=== PATIENT | male | born 1955 | race Hispanic/Latino ===

== ENCOUNTER → 2017-08-29 | Outpatient (CLI) | payer OTHER | END | disposition home or self-care (01) | LOC: RAH 07:29 | PROVIDERS: ATTEND Family Medicine | DX: S83.231A Complex tear of medial meniscus, current injury, right knee, initial encounter (principal); M17.11 Unilateral primary osteoarthritis, right knee; M94.261 Chondromalacia, right knee; M25.461 Effusion, right knee; X58.XXXA Exposure to other specified factors, initial encounter; Y93.89 Activity, other specified; Y92.89 Other specified places as the place of occurrence of the external cause; Y99.8 Other external cause status | CPT/HCPCS: 73721 ==

== ENCOUNTER → 2018-02-18 | Outpatient (CLI) | payer OTHER | END | disposition home or self-care (01) | LOC: OIH 10:41 | PROVIDERS: ATTEND Family Medicine | DX: I10 Essential (primary) hypertension (principal) | CPT/HCPCS: 71046 ==

== ENCOUNTER → 2018-06-13 | Outpatient (CLI) | payer OTHER | END | disposition home or self-care (01) | LOC: OIH 09:09 | PROVIDERS: ATTEND Family Medicine | DX: M47.896 Other spondylosis, lumbar region (principal); M47.898 Other spondylosis, sacral and sacrococcygeal region; M43.27 Fusion of spine, lumbosacral region | CPT/HCPCS: 72100; 72220 ==

== ENCOUNTER → 2018-10-24 | Outpatient (CLI) | payer OTHER | END | disposition home or self-care (01) | LOC: OIH 13:46 | PROVIDERS: ATTEND Family Medicine | DX: M19.072 Primary osteoarthritis, left ankle and foot (principal); M77.32 Calcaneal spur, left foot | CPT/HCPCS: 73630 ==

== ENCOUNTER → 2018-10-31 | Outpatient (CLI) | payer OTHER | END | disposition home or self-care (01) | LOC: RAH 12:44 | PROVIDERS: ATTEND Family Medicine | DX: L03.031 Cellulitis of right toe (principal); E11.51 Type 2 diabetes mellitus with diabetic peripheral angiopathy without gangrene | CPT/HCPCS: 93925 ==

== ENCOUNTER → 2019-02-11 | Outpatient (CLI) | payer OTHER | END | disposition home or self-care (01) | LOC: OIH 14:25 | PROVIDERS: ATTEND Family Medicine | DX: M25.511 Pain in right shoulder (principal); W11.XXXA Fall on and from ladder, initial encounter | CPT/HCPCS: 73030 ==

== ENCOUNTER → 2019-12-17 | Outpatient (CLI) | payer OTHER | END | disposition home or self-care (01) | LOC: RAH 08:46 | PROVIDERS: ATTEND Family Medicine | DX: R22.9 Localized swelling, mass and lump, unspecified (principal) | CPT/HCPCS: 76536 ==

== ENCOUNTER → 2020-02-05 | Outpatient (CLI) | payer OTHER | END | disposition home or self-care (01) | LOC: OIH 08:09 | PROVIDERS: ATTEND Family Medicine | DX: M47.817 Spondylosis without myelopathy or radiculopathy, lumbosacral region (principal) | CPT/HCPCS: 72100 ==

== ENCOUNTER → 2021-01-30 | Outpatient (CLI) | payer OTHER | END | disposition home or self-care (01) | LOC: RAH 11:14 | PROVIDERS: ATTEND Family Medicine | DX: R19.03 Right lower quadrant abdominal swelling, mass and lump (principal); R10.2 Pelvic and perineal pain | CPT/HCPCS: 76882 ==

== ENCOUNTER 2021-02-09 20:27 | Emergency (ER) | payer OTHER, MEDICARE ==
[~2021-02-09] VITALS: Ht 172.7 cm; Wt 113.4 kg
[2021-02-09] VITALS (8 sets, daily range): BP systolic 108–122; BP diastolic 46–64
[2021-02-09] MEDS ORDERED: HYDROCODONE/ACETAMINOPHEN 5/325 MG TAB PO ONE (20:45)
[2021-02-09] MEDS ORDERED: OCTYL 2-CYANOACRYLATE 1 EACH TP ONE (23:07)
[2021-02-09] MEDS ORDERED: NOREPINEPHRINE 4MG/NS 250ML 250 ML IV ONE (23:08)
[2021-02-09] MEDS ORDERED: CEPH500B PO (23:21)
== END 2021-02-09 23:38 | disposition home or self-care (01) ==
LOC: EDH 22:35
DX: S81.012A Laceration without foreign body, left knee, initial encounter (principal); I10 Essential (primary) hypertension; E10.9 Type 1 diabetes mellitus without complications; W27.8XXA Contact with other nonpowered hand tool, initial encounter; Y93.89 Activity, other specified; Y92.89 Other specified places as the place of occurrence of the external cause; Y99.8 Other external cause status
CPT/HCPCS: 12002; 73562; 99285; J3490

== ENCOUNTER 2023-02-20 00:17 | Emergency (ER) | payer OTHER, MEDICARE ==
[~2023-02-20 00:17] MED LIST: CEPH500B PO
[2023-02-20] MEDS ORDERED: TETANUS/DIPHTHERIA TOXOID [ADULT] 0.5 ML VIAL IM ONE (01:00)
[2023-02-20] MEDS ORDERED: CEPH500B PO (01:25)
[2023-02-20] MEDS ORDERED: CYCL10TA16 PO (01:25)
[2023-02-20 01:44] VITALS: BP 110/53
== END 2023-02-20 01:45 | disposition home or self-care (01) ==
LOC: EDH 00:17
DX: S00.01XA Abrasion of scalp, initial encounter (principal); I10 Essential (primary) hypertension; E11.9 Type 2 diabetes mellitus without complications; Y08.89XA Assault by other specified means, initial encounter; Y93.89 Activity, other specified; Y92.89 Other specified places as the place of occurrence of the external cause; Y99.8 Other external cause status
CPT/HCPCS: 70450; 71045; 72125; 90471; 90714

== ENCOUNTER 2023-02-23 10:57 | Observation (INO) | payer OTHER, MEDICARE ==
[~2023-02-23] VITALS: Ht 180.3 cm; Wt 86.9 kg
[~2023-02-23 10:57] MED LIST changes: +CYCL10TA16 PO
[2023-02-23 11:22] LABS: EOSINOPHILS % (AUTO) 2.2 % (0.0-8.0); HEMATOCRIT 41.2 % (42-54); LYMPHOCYTES % (AUTO) 25.4 % (21.0-51.0); MEAN CORPUSCULAR HEMOGLOBIN 28.1 pg (27.0-33.0); MEAN CORPUSCULAR HGB CONC 32.3 g/dL (32.0-36.0); MEAN CORPUSCULAR VOLUME 87.1 fL (79-99); MONOCYTES % (AUTO) 9.1 % (3.0-13.0); PLATELET COUNT (AUTO) 176 K/uL (130-400); RED BLOOD CELL COUNT(AUTO) 4.73 MIL/uL (4.50-6.20); RED CELL DISTRIBUTION WIDTH 13.6 % (11.0-15.5)
[2023-02-23 11:38] LABS: ALBUMIN 3.6 g/dL (3.5-5.0); TOTAL PROTEIN, SERUM 7.3 g/dL (6.0-8.3)
[2023-02-23 11:49] LABS: B-TYPE NATRIURETIC PEPTIDE 18 pg/mL (0-100)
[2023-02-23] MEDS ORDERED: MECLIZINE HCL 25 MG TABLET PO ONE (12:00)
[2023-02-23] MEDS ORDERED: 0.9%NACL 1000ML 1,000 ML IV ONE (12:00)
[2023-02-23] MEDS ORDERED: KETOROLAC 15MG/ML VIAL (15MG/ML) IV ONE (12:00)
[2023-02-23 12:28] LABS: APPEARANCE,URINE CLEAR (CLEAR); BILIRUBIN,URINE NEGATIVE (NEGATIVE); COLOR,URINE LIGHT-YELLOW (YELLOW); GLUCOSE, URINE (UA) >=1000 mg/dL (NEGATIVE); KETONES,URINE 10 mg/dL (NEGATIVE); LEUKOCYTE ESTERASE ,URINE NEGATIVE Leu/uL (NEGATIVE); NITRATE,URINE NEGATIVE (NEGATIVE); OCCULT BLOOD,URINE SMALL (NEGATIVE); PH,URINE 5.5 (5.0-8.0); PROTEIN,URINE 30 mg/dL (NEGATIVE); UROBILINOGEN,URINE 0.2 mg/dL (0.2-1.0)
[2023-02-23 12:31] LABS: SQUAMOUS EPITHELIAL CELL,UR RARE /HPF (0-2); WBC,URINE 0-1 /HPF (0-1)
[2023-02-23] MEDS ORDERED: IOHEXOL 350 MG/ML 100ML INFUS..BTL IV ONE (13:35)
[2023-02-23] MEDS ORDERED: DEXAMETHASONE SOD PHOSPHATE 4 MG/ML 1ML VIAL IVP ONE (16:00)
[2023-02-23] MEDS ORDERED: ACETAMINOPHEN 325 MG TAB PO PRN (16:00)
[2023-02-23] MEDS ORDERED: TRAMADOL HCL 50 MG TABLET PO PRN (16:00)
[2023-02-23] MEDS ORDERED: LACTATED RINGERS 1000ML 1,000 ML IV SCH (16:00)
[2023-02-23] MEDS ORDERED: CEFTRIAXONE 1G VIAL IVPB SCH (16:00)
[2023-02-23] MEDS ORDERED: CLONIDINE HCL 0.1 MG TABLET PO PRN (16:00)
[2023-02-23] MEDS ORDERED: ONDANSETRON 4MG INJ IVP PRN (16:00)
[2023-02-23] MEDS ORDERED: LACTULOSE 20 GM/30 ML UDCUP PO PRN (16:00)
[2023-02-23] MEDS ORDERED: ACETAMINOPHEN 650 MG SUPPOSITORY RC PRN (16:00)
[2023-02-23] MEDS ORDERED: HYDRALAZINE 20MG/ML VIAL IV PRN (16:00)
[2023-02-23] MEDS: DOXYCYCLINE 100MG+NS 250ML IV SCH (16:13)
[2023-02-23 19:00] VITALS: BP 130/58
[2023-02-23 23:36] VITALS: BP 106/50
[2023-02-24 04:00] VITALS: BP 105/51
[2023-02-24] MEDS: DOXYCYCLINE 100MG+NS 250ML IV SCH (04:26)
[2023-02-24 04:51] LABS: BASOPHILS % (AUTO) 0.2 % (0.0-5.0); HEMATOCRIT 37.6 % (42-54); LYMPHOCYTES % (AUTO) 12.6 % (21.0-51.0); MEAN CORPUSCULAR HEMOGLOBIN 28.5 pg (27.0-33.0); MEAN CORPUSCULAR HGB CONC 33.2 g/dL (32.0-36.0); MEAN CORPUSCULAR VOLUME 85.8 fL (79-99); MONOCYTES % (AUTO) 3.5 % (3.0-13.0); NEUTROPHILS % (AUTO) 83.4 % (40.0-77.0); PLATELET COUNT (AUTO) 178 K/uL (130-400); RED BLOOD CELL COUNT(AUTO) 4.38 MIL/uL (4.50-6.20); RED CELL DISTRIBUTION WIDTH 13.3 % (11.0-15.5)
[2023-02-24] MEDS ORDERED: ROSU40TA21 PO (04:56)
[2023-02-24] MEDS ORDERED: PREG100C55 PO (04:56)
[2023-02-24] MEDS ORDERED: EMPA25TA PO (04:56)
[2023-02-24] MEDS ORDERED: SITA1TAB6 PO (04:56)
[2023-02-24] MEDS ORDERED: RAMI1.2528 PO (04:56)
[2023-02-24 04:59] LABS: CREATININE 1.1 mg/dL (0.5-1.5); MAGNESIUM 1.3 mg/dL (1.80-2.40); POTASSIUM 4.1 mmol/L (3.5-5.1)
[2023-02-24 08:19] VITALS: BP 103/48
[2023-02-24] MEDS ORDERED: ENOXAPARIN SODIUM 40 MG/0.4 ML SYRINGE SQ SCH (09:00)
[2023-02-24] MEDS ORDERED: PANTOPRAZOLE 40 MG TAB DR PO SCH (09:00)
[2023-02-24 12:00] VITALS: BP 114/50
== END 2023-02-24 17:30 | disposition home or self-care (01) ==
LOC: EDH 10:57 → EDHIP 15:46 → 3DH 19:06
PROVIDERS: ADMIT Internal Medicine; ATTEND Internal Medicine
DX: R42 Dizziness and giddiness (principal); S00.01XA Abrasion of scalp, initial encounter; I10 Essential (primary) hypertension; E11.9 Type 2 diabetes mellitus without complications; R26.9 Unspecified abnormalities of gait and mobility; R51.9 Headache, unspecified; Z79.899 Other long term (current) drug therapy; Z98.890 Other specified postprocedural states; W19.XXXA Unspecified fall, initial encounter; Y92.89 Other specified places as the place of occurrence of the external cause; Y93.89 Activity, other specified; Y99.8 Other external cause status
CPT/HCPCS: 96361; 96365; 96366 ×2; 96375; 99285; 82550; 84484; 80053; 83880; 85025 ×2; 82948 ×2; 83605; 81001; 36415 ×2; 71045; 70450; 70496; 70498; 93306; 93880; 93005; 96372; 83735; 80048; 97161; 97116; J1100; G0378 ×24; J7120; J7030; J0696; J3490 ×2; J1885; Q9967; J1650

== ENCOUNTER 2024-12-02 20:28 | Emergency (ER) | payer MEDICARE ==
[~2024-12-02] VITALS: Ht 180.3 cm; Wt 86.2 kg
[~2024-12-02 20:28] MED LIST changes: -CEPH500B PO; -CYCL10TA16 PO; +EMPA25TA PO; +PREG100C56 PO; +RAMI1.2529 PO; +ROSU40TA88 PO; +SITA1TAB6 PO
--- NOTE | 2024-12-02 21:56 | HMCIMG ---
CT NECK SOFT TISS W/O CONTRAST HISTORY: Probable swallowing COMPARISON: None TECHNIQUE: Multiple sequential axial images of the soft tissue neck were obtained. Patient was not given contrast through intravenous route. FINDINGS: Visualized portion of brain parenchyma within the posterior fossa is within normal limits. Subtle isointense material is seen in the right piriform sinus region may be related to food material. There are degenerative changes with cervical spine spondylosis. Parapharyngeal fat planes are preserved bilaterally. Parotid glands and submandibular glands are grossly within normal limits. There are normal size cervical lymph nodes. The airway is patent. Visualized portion of the lung apices are unremarkable. IMPRESSION: 1. Subtle isointense material is seen in the right piriform sinus region may be related to food material. CT was performed with one or more following dose reduction techniques: automated exposure control, adjustment of the mA and kv according to patient's size, or use of a iterative reconstruction technique.
[2024-12-02] MEDS: LIDOCAINE HCL 2% VISCOUS 15 ML UDCUP PO ONE (22:19)
[2024-12-02] MEDS: DICYCLOMINE HCL 10 MG/5 ML ML PO ONE (22:19)
[2024-12-02] MEDS: MAG/ALUM/SIMETH 30 ML UDCUP PO ONE (22:19)
--- NOTE | 2024-12-02 22:38 | ERN ---
ED Note History of Present Illness Stated Complaint: C/O FEELING A PIECE OF GARLIC IN THROAT Chief Complaint: Swallowed Foreign Body Time Seen by MD: 20:47 Time Seen by Midlevel: 20:47 Dictation: Patient is a 69-year-old male who presents to the emergency department with sensation of food stuck in throat after eating a piece of garlic onset 1 hour ago. Patient denies any shortness of breath, cough, nausea or vomiting. Allergies: Coded Allergies: No Known Drug Allergies (Unverified Allergy, Unknown, 02/09/21) Home Meds Reported Medications Sitagliptin Phos/Metformin HCl (Janumet 50-1,000 mg Tablet) 1 Each Tablet, 1 EACH PO BIDPC, TAB 02/24/23 Ramipril (Ramipril) 1.25 Mg Capsule, 1.25 MG PO DAILY, CAP 02/24/23 Rosuvastatin Calcium (Rosuvastatin Calcium) 40 Mg Tablet, 40 MG PO DAILY, TAB 02/24/23 Empagliflozin (Jardiance) 25 Mg Tablet, 25 MG PO DAILY, TAB 02/24/23 Pregabalin (Pregabalin) 100 Mg Capsule, 100 MG PO BID, CAP 02/24/23 Past Medical History Past Medical History: Diabetes-Type II Surgical History: None Surgical History Other: BACK Social History: ETOH, Lives with family RN Note Reviewed/Agreed w/PFSH: Yes Review of System Dictation Constitutional: Negative for fever,chills, and weight loss Eyes: Negative for injury, pain,redness, and discharge ENT: Negative for injury,pain or swelling positive for sore throat Cardiovascular: Negative for chest pain, palpitations, and edema Respiratory: Negative for shortness of breath, cough, and wheezing, Abdomen/GI: Negative for abdominal pain, nausea, vomiting, diarrhea, and constipation Back: Negative for injury and pain : Negative for injury, bleeding and discharge MS/Extremity: Negative for injury and deformity Skin: Negative for rash, and discoloration Neuro: Negative for headache, weakness, numbness, tingling, and seizure Psych: Negative for suicide ideation, homicidal ideation, and hallucinations Initial Vital Sign VS Vital Signs Date Time Temp Pulse Resp B/P (MAP) Pulse Ox O2 Delivery O2 Flow Rate FiO2 12/02/24 20:30 97.2 58 20 125/65 97 Room Air 12/02/24 20:38 0 21 Physical Exam Dictation Vital Signs reviewed General Appearance: Alert, oriented x 3, no acute distress, well developed, nourished. Head and Face: non-traumatic. Eyes: PERRL, pink conjunctivas, eyelid no trauma, anterior chamber with arcus senilis. Ears: Pinnas intact and no signs of trauma or erythema ear canals clear and no discharge TM no erythema Nose: No discharge, no bleeding. Oropharynx: Mouth normal, tongue pink. pharynx clear,no erythema, tonsils no exudates, no abscesses noted, mucous membrane moist Neck: Supple, non-tender, no thyromegaly, no masses, no JVD, no bruits Breast:Deferred Chest:No tenderness, no crepitus, no paradoxical movement, no retractions Lungs:Clear, well-ventilated, symmetric, no rales, no wheezing, no rhonchi, no stridor, good breath sounds bilaterally Heart: Regular rate, regular rhythm, no murmur, no gallops Vascular: no peripheral edema, Abdomen: Soft, positive bowel sounds, nondistended, no guarding, nontender, no rebound, no masses no hepatomegaly, no splenomegaly, no Stewart's sign, no hernias. Rectal: Deferred Genital: Deferred Neurological: Normal speech, motor function intact, sensory function intact Musculoskeletal: Neck nontender, full range of motion, back nontender, full range of motion, Extremities: nontender, full range of motion Skin: Color pink, dry, no turgor, no rash, no lacerations, no abrasions, no contusions. Lymphatic: Deferred Results (Laboratory/Radiology) Laboratory/Radiology REASON: rule out foreign body ORDERING PHYSICIAN: AURA SHORT ZONING TECHNICIAN PROCEDURE: [id number] WO - CT NECK SOFT TISS W/O CONTRAST CT NECK SOFT TISS W/O CONTRAST HISTORY: Probable swallowing COMPARISON: None TECHNIQUE: Multiple sequential axial images of the soft tissue neck were obtained. Patient was not given contrast through intravenous route. FINDINGS: Visualized portion of brain parenchyma within the posterior fossa is within normal limits. Subtle isointense material is seen in the right piriform sinus region may be related to food material. There are degenerative changes with cervical spine spondylosis. Parapharyngeal fat planes are preserved bilaterally. Parotid glands and submandibular glands are grossly within normal limits. There are normal size cervical lymph nodes. The airway is patent. Visualized portion of the lung apices are unremarkable. IMPRESSION: 1. Subtle isointense material is seen in the right piriform sinus region may be related to food material. CT was performed with one or more following dose reduction techniques: automated exposure control, adjustment of the mA and kv according to patient's size, or use of a iterative reconstruction technique. Labs Reviewed?: Yes ED Course ED Course Orders Procedure Category Date Status Time Ct Neck Soft Tiss W/O CT 12/02/24 Resulted Contrast 21:00 Lidocaine Hcl 2% PHA 12/02/24 Complete Viscous (Lidocaine Hcl 22:00 Dicyclomine Hcl PHA 12/02/24 Complete (Bentyl 10mg/5ml 22:00 Mag/Alum/Simeth 30ml PHA 12/02/24 Complete (Maalox Plus 30ml) 22:00 Current Medications Medications (Trade) Dose Ordered Sig/Candace Route PRN Reason Start Time Stop Time Status Last Admin Dose Admin Al Hydroxide/Mg Hydroxide (MAALox PLUS 30ML) 30 ml ONCE ONCE PO 12/02/24 22:00 12/02/24 22:01 DC 12/02/24 22:19 Dicyclomine HCl (Bentyl 10mg/5ml Syrup) 10 mg ONCE ONCE PO 12/02/24 22:00 12/02/24 22:01 DC 12/02/24 22:19 Lidocaine HCl (Lidocaine HCl 2% Viscous) 10 ml ONCE ONCE PO 12/02/24 22:00 12/02/24 22:01 DC 12/02/24 22:19 Vital Signs Date Time Temp Pulse Resp B/P (MAP) Pulse Ox O2 Delivery O2 Flow Rate FiO2 12/02/24 20:38 97.2 58 20 125/65 97 Room Air* 0 21 12/02/24 20:30 97.2 58 20 125/65 97 Room Air Medical Decision Making MDM Patient is a 69-year-old male who presents to the emergency department with sensation of food stuck in throat after eating a piece of garlic onset 1 hour ago. Patient denies any shortness of breath, cough, nausea or vomiting. CT showed subtle is so intense material seen in the right piriform sinus region that could related to food material. Patient instructed to drink plenty of fluids at home and to a gurgle. Patient in no acute distress, no cough, no drooling. We will be discharged to follow up with PCP. Differential diagnosis: Foreign body in throat, dysphagia, gastritis Need for hospitalization: Patient does not meet criteria for hospitalization. There are no social concerns with this patient. DX & DISP Disposition: Discharge Departure Impression: Primary Impression: Throat irritation Additional Impression: Sensation of foreign body in throat Condition: Stable Additional Instructions: Follow up with your primary doctor in 1-2 days. If symptoms worsen please return to ER. Continue to drink plenty of fluids at home. If symptoms do not improve might be eating referral to a watch and clock repairer. FOLLOW-UP WITH PRIMARY CARE PROVIDER IN 1 TO 2 DAYS. TAKE MEDICATIONS DIRECTED HERE IN THE EMERGENCY ROOM. OKAY TO CONTINUE HOME MEDICATIONS UNLESS OTHERWISE DISCUSSED DURING YOUR VISIT IN THE EMERGENCY ROOM TODAY. RETURN TO YOUR NEAREST EMERGENCY ROOM IF SYMPTOMS WORSEN OR IF THERE IS NO IMPROVEMENT. CALL 911 IF YOU NEED IMMEDIATE ASSISTANCE. TAKE TYLENOL OR MOTRIN [id number] NEEDED AND IF NO CONTRAINDICATIONS ARE PRESENT. INCREASE ORAL HYDRATION. A WOUND CULTURE OR URINE CULTURE WAS ORDERED HERE IN THE EMERGENCY ROOM DEPARTMENT PLEASE FOLLOW-UP WITH PRIMARY CARE PROVIDER AND ADVISE THEM TO GET REPEAT PORTS FROM OUR FACILITY. IF YOU HAD ANY YENNY WRAP/SPLINTS THAT WERE APPLIED HERE, PLEASE DO NOT REMOVE THEM UNTIL YOU SEE YOUR PRIMARY CARE OR SPECIALTY. Referrals: RAMON CROOKS MD (PCP) Time of Disposition: 22:35 I have reviewed the case, and I agree with, Diagnosis and Plan AURA SHORT Dec 02, 2024 22:38
[2024-12-02 22:45] VITALS: BP 128/62; PULSE 65; RESP 20; TEMP 97.2; O2SAT 97
== END 2024-12-02 22:46 | disposition home or self-care (01) ==
LOC: EDH 20:28
DX: R09.A2 Foreign body sensation, throat (principal); E11.9 Type 2 diabetes mellitus without complications; Z79.84 Long term (current) use of oral hypoglycemic drugs; Z79.899 Other long term (current) drug therapy
CPT/HCPCS: 70490; 99284

== ENCOUNTER 2025-01-12 12:17 | Emergency (ER) | payer MEDICARE ==
[~2025-01-12] VITALS: Ht 180.3 cm; Wt 84.4 kg
--- NOTE | 2025-01-12 12:57 | EKG ---
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
[2025-01-12 13:20] LABS: BASOPHILS # (AUTO) 0.06 K/uL (0.00-0.20); EOSINOPHILS # (AUTO) 0.14 K/uL (0.00-0.70); EOSINOPHILS % (AUTO) 2.4 % (0.0-8.0); IMMATURE GRANULOCYTE ABSOLUTE 0.01 K/uL (0-1); LYMPHOCYTES # (AUTO) 1.4 K/uL (1.0-4.8); LYMPHOCYTES % (AUTO) 24.5 % (21.0-51.0); MEAN CORPUSCULAR HEMOGLOBIN 29.2 pg (27.0-33.0); MEAN CORPUSCULAR HGB CONC 32.7 g/dL (32.0-36.0); MEAN CORPUSCULAR VOLUME 89.3 fL (79-99); MONOCYTES # (AUTO) 0.4 K/uL (0.1-1.0); MONOCYTES % (AUTO) 7.5 % (3.0-13.0); NEUTROPHILS # (AUTO) 3.7 K/uL (1.8-7.7); NEUTROPHILS % (AUTO) 64.4 % (40.0-77.0); PLATELET COUNT (AUTO) 190 K/uL (130-400); RED BLOOD CELL COUNT(AUTO) 4.59 MIL/uL (4.50-6.20); RED CELL DISTRIBUTION WIDTH 12.8 % (11.0-15.5); WHITE BLOOD COUNT (AUTO) 5.7 K/uL (4.8-10.8)
[2025-01-12 13:32] LABS: CREATININE 1.2 mg/dL (0.5-1.3); MAGNESIUM 1.9 mg/dL (1.80-2.40); POTASSIUM 4.6 mmol/L (3.5-5.1)
[2025-01-12 13:33] LABS: INR 1.03 (0.85-1.15); PROTHROMBIN TIME 10.9 SEC (9.6-11.6)
[2025-01-12 13:34] LABS: PARTIAL THROMBOPLASTIN TIME 28.8 SEC (26.3-35.5)
[2025-01-12 13:45] LABS: B-TYPE NATRIURETIC PEPTIDE 37 pg/mL (0-100)
--- NOTE | 2025-01-12 13:50 | HMCIMG ---
Exam Type: CHEST 1VW Clinical Information: cp Comparison: None Findings: The lungs are clear of infiltrates. The heart is normal in size. The bony and soft tissue structures of the chest are unremarkable. Impression: Clear lungs.
[2025-01-12 15:53] LABS: AMPHET/METH SCREEN,URINE NEGATIVE (NEGATIVE); BARBITURATE SCREEN, URINE NEGATIVE (NEGATIVE); BENZODIAZEPINES SCREEN,URINE NEGATIVE (NEGATIVE); CANNABINOID SCREEN,URINE NEGATIVE (NEGATIVE); COCAINE SCREEN,URINE NEGATIVE (NEGATIVE); OPIATE SCREEN,URINE NEGATIVE (NEGATIVE); PHENCYCLIDINE SCREEN,URINE NEGATIVE (NEGATIVE)
--- NOTE | 2025-01-12 16:12 | ERN ---
General Chief Complaint: Chest Pain Stated Complaint: CHEST PAIN Time Seen by MD: 12:35 Time Seen by Midlevel: 12:35 History of Present Illness Allergies: Coded Allergies: No Known Drug Allergies (Unverified Allergy, Unknown, 02/09/21) Home Meds Reported Medications Sitagliptin Phos/Metformin HCl (Janumet 50-1,000 mg Tablet) 1 Each Tablet, 1 EACH PO BIDPC, TAB 02/24/23 Ramipril (Ramipril) 1.25 Mg Capsule, 1.25 MG PO DAILY, CAP 02/24/23 Rosuvastatin Calcium (Rosuvastatin Calcium) 40 Mg Tablet, 40 MG PO DAILY, TAB 02/24/23 Empagliflozin (Jardiance) 25 Mg Tablet, 25 MG PO DAILY, TAB 02/24/23 Pregabalin (Pregabalin) 100 Mg Capsule, 100 MG PO BID, CAP 02/24/23 Past Medical History Past Medical History: Diabetes-Type II, Hypertension Past Surgical History: None Surgical History Other: BACK Social History Social History: ETOH, Lives with family ROS Dictation CONSTITUTIONAL: Negative except for HPI HEAD/FACE: Negative except for HPI EENT: Negative except for HPI RESPIRATORY: Negative except for HPI GASTROINTESTINAL/ABDOMINAL: Negative except for HPI GENITOURINARY: Negative except for HPI MUSCULOSKELETAL: Negative except for HPI INTEGUMENTARY: Negative except for HPI NEUROLOGICAL/PSYCH: Negative except for HPI HEMATOLOGIC/LYMPHATIC: Negative except for HPI All Systems Negative, Except as noted above. 13 point review of systems assessed and all negative except for above. Physical Exam Physical Exam Dictation Vital Signs reviewed General Appearance: Alert, oriented x 3, no acute distress, well developed, nourished. Head and Face: non-traumatic. Eyes: PERRL, pink conjunctivas, eyelid no trauma, anterior chamber with arcus senilis. Ears: Pinnas intact and no signs of trauma or erythema ear canals clear and no discharge TM no erythema Nose: No discharge, no bleeding. Oropharynx: Mouth normal, tongue pink, pharynx clear,no erythema, tonsils no exudates, no abscesses noted, mucous membrane moist Neck: Supple, non-tender, no thyromegaly, no masses, no JVD, no bruits Breast:Deferred Chest:No tenderness, no crepitus, no paradoxical movement, no retractions Lungs:Clear, well-ventilated, symmetric, no rales, no wheezing, no rhonchi, no stridor, good breath sounds bilaterally Heart: Regular rate, regular rhythm, no murmur, no gallops Vascular: no peripheral edema, Abdomen: Soft, positive bowel sounds, nondistended, no guarding, nontender, no rebound, no masses no hepatomegaly, no splenomegaly, no Stewart's sign, no hernias. Rectal: Deferred Genital: Deferred Neurological: Normal speech, motor function intact, sensory function intact Musculoskeletal: Neck nontender, full range of motion, back nontender, full range of motion, Extremities: nontender, full range of motion Skin: Color pink, dry, no turgor, no rash, no lacerations, no abrasions, no contusions. Lymphatic: Deferred Results Laboratory and Microbiology Lab and Micro Result Laboratory Tests Test 01/12/25 13:03 01/12/25 15:37 White Blood Count 5.7 K/uL (4.8-10.8) Red Blood Count 4.59 MIL/uL (4.50-6.20) Hemoglobin 13.4 g/dL (14.0-18.0) L Hematocrit 41.0 % (42-54) L Mean Corpuscular Volume 89.3 fL (79-99) Mean Corpuscular Hemoglobin 29.2 pg (27.0-33.0) Mean Corpuscular Hemoglobin Concent 32.7 g/dL (32.0-36.0) Red Cell Distribution Width 12.8 % (11.0-15.5) Platelet Count 190 K/uL (130-400) Mean Platelet Volume 10.3 fL (7.5-10.5) Immature Granulocyte % (Auto) 0.2 % (0-1) Neutrophils (%) (Auto) 64.4 % (40.0-77.0) Lymphocytes (%) (Auto) 24.5 % (21.0-51.0) Monocytes (%) (Auto) 7.5 % (3.0-13.0) Eosinophils (%) (Auto) 2.4 % (0.0-8.0) Basophils (%) (Auto) 1.0 % (0.0-5.0) Neutrophils # (Auto) 3.7 K/uL (1.8-7.7) Lymphocytes # (Auto) 1.4 K/uL (1.0-4.8) Monocytes # (Auto) 0.4 K/uL (0.1-1.0) Eosinophils # (Auto) 0.14 K/uL (0.00-0.70) Basophils # (Auto) 0.06 K/uL (0.00-0.20) Absolute Immature Granulocyte (auto 0.01 K/uL (0-1) Nucleated Red Blood Cells 0.0 % (0.0-0.19) Prothrombin Time 10.9 SEC (9.6-11.6) Prothromb Time International Ratio 1.03 (0.85-1.15) Activated Partial Thromboplast Time 28.8 SEC (26.3-35.5) Sodium Level 143 mmol/L (136-145) Potassium Level 4.6 mmol/L (3.5-5.1) Chloride Level 107 mmol/L (101-111) Carbon Dioxide Level 28 mmol/L (21-32) Blood Urea Nitrogen 22 mg/dL (7-18) H Creatinine 1.2 mg/dL (0.5-1.3) Glomerular Filtration Rate Calc 65 mL/min (>90) Random Glucose 106 mg/dL (70-105) H Total Calcium 9.6 mg/dL (8.5-10.1) Magnesium Level 1.90 mg/dL (1.80-2.40) Troponin I High Sensitivity 10 ng/L (4-75) B-Type Natriuretic Peptide 37 pg/mL (0-100) Urine Opiates Screen NEGATIVE (NEGATIVE) Urine Barbiturates Screen NEGATIVE (NEGATIVE) Urine Phencyclidine Screen NEGATIVE (NEGATIVE) Urine Amphetamines Screen NEGATIVE (NEGATIVE) Urine Benzodiazepines Screen NEGATIVE (NEGATIVE) Urine Cocaine Screen NEGATIVE (NEGATIVE) Urine Marijuana (THC) Screen NEGATIVE (NEGATIVE) Labs Reviewed?: Yes ED Course Orders Procedure Category Date Status Time 12 Lead Ekg Tracing- EKG 01/12/25 Complete Technical 12:35 12 Lead Ekg Tracing- EKG 01/12/25 Logged Technical 12:49 Cbc With Differential LAB 01/12/25 Complete 12:49 Basic Metabolic Panel LAB 01/12/25 Complete 12:49 B-Type Natriuretic LAB 01/12/25 Complete Peptide 12:49 Drug Screen Urine LAB 01/12/25 Complete 12:49 Magnesium LAB 01/12/25 Complete 12:49 Troponin I High LAB 01/12/25 Complete Sensitivity 12:49 Pt And Ptt LAB 01/12/25 Complete 12:49 Chest 1vw RAD 01/12/25 Resulted 12:49 Vital Signs Date Time Temp Pulse Resp B/P (MAP) Pulse Ox O2 Delivery O2 Flow Rate FiO2 01/12/25 12:49 97.2 51 20 135/65 98 DX & DISP Disposition: Discharge Departure Impression: Primary Impression: Non-cardiac chest pain Condition: Stable Additional Instructions: Your blood work today is unremarkable. Your cardiac enzymes are negative. Your EKG shows no evidence of heart attack. Your chest x-ray is normal. Please follow up with your primary care doctor in 2-3 days for repeat evaluation Referrals: RAMON CROOKS MD (PCP) Time of Disposition: 16:11 I have reviewed the case, and I agree with, Diagnosis and Plan I performed the substantive portion of the visit. I have reviewed and pe rsonally made and approve the management plan that is documented in the note by myself or the CODI. I acknowledge for responsibility for the patient's management plan. FAISAL MARTINEZ January 12, 2025 16:11
[2025-01-12 16:21] VITALS: BP 131/64; PULSE 60; RESP 20; TEMP 97.9; O2SAT 98
== END 2025-01-12 16:32 | disposition home or self-care (01) ==
LOC: EDH 12:17
DX: R07.89 Other chest pain (principal); E11.9 Type 2 diabetes mellitus without complications; I10 Essential (primary) hypertension; Z79.84 Long term (current) use of oral hypoglycemic drugs; Z79.899 Other long term (current) drug therapy
CPT/HCPCS: 36415; 71045; 80048; 80305; 83735; 83880; 84484; 85025; 85610; 85730; 93005; 99285

== ENCOUNTER 2025-02-27 15:05 | Emergency (ER) | payer MEDICARE ==
[~2025-02-27] VITALS: Ht 180.3 cm
[2025-02-27 15:52] LABS: IMMATURE GRANULOCYTE ABSOLUTE 0.02 K/uL (0-1); NUCLEATED RED BLOOD CELLS 0.0 % (0.0-0.19); PLATELET COUNT (AUTO) 179 K/uL (130-400); RED BLOOD CELL COUNT(AUTO) 4.57 MIL/uL (4.50-6.20); RED CELL DISTRIBUTION WIDTH 13.2 % (11.0-15.5); WHITE BLOOD COUNT (AUTO) 8.0 K/uL (4.8-10.8)
[2025-02-27 15:58] LABS: CREATININE 1.0 mg/dL (0.5-1.3); GLOMERULAR FILTR. RATE CALC 81.0 mL/min (>90); GLUCOSE,RANDOM 78.0 mg/dL (70-105); SODIUM SERUM 140.0 mmol/L (136-145); UREA NITROGEN, BLOOD 23.0 mg/dL (7-18)
--- NOTE | 2025-02-27 16:06 | ERN ---
General Chief Complaint: Puncture Wound Stated Complaint: PUNCTURE WOUND, ALMAS CELLILITIS Time Seen by MD: 15:07 Source: patient History of Present Illness Initial Comments Is a 69-year-old male coming in complaining of left foot pain. Patient states t hat he stepped on a nail in his not having foot pain. Patient states that this has erythema of the left calf region. Patient is a diabetic so is here for further follow up. Allergies: Coded Allergies: No Known Drug Allergies (Unverified Allergy, Unknown, 02/09/21) Home Meds Reported Medications Sitagliptin Phos/Metformin HCl (Janumet 50-1,000 mg Tablet) 1 Each Tablet, 1 EACH PO BIDPC, TAB 02/24/23 Ramipril (Ramipril) 1.25 Mg Capsule, 1.25 MG PO DAILY, CAP 02/24/23 Rosuvastatin Calcium (Rosuvastatin Calcium) 40 Mg Tablet, 40 MG PO DAILY, TAB 02/24/23 Empagliflozin (Jardiance) 25 Mg Tablet, 25 MG PO DAILY, TAB 02/24/23 Pregabalin (Pregabalin) 100 Mg Capsule, 100 MG PO BID, CAP 02/24/23 Past Medical History Past Medical History: Diabetes-Type II, Hypertension Past Surgical History: Appendectomy, None Surgical History Other: BACK Social History Social History: ETOH, Lives with family ROS Dictation CONSTITUTIONAL: No chills, no fever, no weakness, no diaphoresis, no malaise. HEAD/FACE: No signs of trauma. EENT: No eye pain, no blurred vision, no tearing, no double vision, no ear pain, no ear discharge, no nose pain, no nasal congestion, no throat pain, no throat swelling, no mouth pain. RESPIRATORY: No cough, no orthopnea, no SOB, no stridor, no wheezing. CARDIOVASCULAR: No chest pain, no edema, no palpitations, no syncope. GASTROINTESTINAL/ABDOMINAL: No abdominal pain, no constipation, no diarrhea, no nausea, no vomiting. GENITOURINARY: No abnormal discharge, no dysuria, no frequent urination, no hematuria. No complaints of pain in the genitals. MUSCULOSKELETAL: No back pain, no gout, no joint pain, no joint swelling, no muscle pain, no muscle stiffness, no neck pain. INTEGUMENTARY: change in color, no change in hair/nails, no dryness, no lesion, no lumps, rash. NEUROLOGICAL/PSYCH: No anxiety, not depressed, no emotional problem, no headache, no numbness, no pre-existing deficit, no history of seizures, no tremors, no weakness. HEMATOLOGIC/LYMPHATIC: Not anemic, no history of blood clots, no apparent bleeding, no bruising, glands not swollen. All Systems Negative, Except as Noted. Physical Exam Physical Exam Dictation VITAL SIGNS: Reviewed. GENERAL APPEARANCE: Alert, oriented x3, no acute distress, obese. HEAD AND FACE: Non-traumatic. EYES: PERRL, pink conjunctivas, eyelid no trauma, anterior chamber clear. EARS: Pinnas intact and no signs of trauma or erythema. Ear canals clear and no discharge. TMs no erythema. NOSE: No discharge, no bleeding. OROPHARYNX: Mouth normal, teeth no caries, tongue pink. Pharynx clear, no erythema. Tonsils no exudates, no abscesses noted. Mucous membrane moist. NECK: Supple, non-tender, no thyromegaly, no masses, no JVD, no bruits. BREAST: Deferred. CHEST: No tenderness, no crepitus, no paradoxical movement, no retractions. LUNGS: Clear, well-ventilated, symmetric, no rales, no wheezing, no rhonchi, no stridor, good breath sounds bilaterally. HEART: Regular rate, regular rhythm, no murmur, no gallops. VASCULAR: No peripheral edema. ABDOMEN: Soft, positive bowel sounds, nondistended, no guarding, nontender, no rebound, no masses no hepatomegaly, no splenomegaly, no Stewart's sign, no hernias. RECTAL: Deferred. GENITAL: Deferred. NEUROLOGICAL: Normal speech, gross motor function intact, gross sensory function intact. MUSCULOSKELETAL: Neck nontender, full range of motion, back nontender, full range of motion. EXTREMITIES: Nontender, full range of motion. SKIN: Color pink, dry, no turgor, no rash, no lacerations, abrasions, no contusions. LYMPHATICS: Deferred. Results Laboratory and Microbiology Lab and Micro Result Laboratory Tests Test 02/27/25 15:32 White Blood Count 8.0 K/uL (4.8-10.8) Red Blood Count 4.57 MIL/uL (4.50-6.20) Hemoglobin 13.3 g/dL (14.0-18.0) L Hematocrit 40.7 % (42-54) L Mean Corpuscular Volume 89.1 fL (79-99) Mean Corpuscular Hemoglobin 29.1 pg (27.0-33.0) Mean Corpuscular Hemoglobin Concent 32.7 g/dL (32.0-36.0) Red Cell Distribution Width 13.2 % (11.0-15.5) Platelet Count 179 K/uL (130-400) Mean Platelet Volume 11.0 fL (7.5-10.5) H Immature Granulocyte % (Auto) 0.3 % (0-1) Neutrophils (%) (Auto) 66.3 % (40.0-77.0) Lymphocytes (%) (Auto) 21.4 % (21.0-51.0) Monocytes (%) (Auto) 10.0 % (3.0-13.0) Eosinophils (%) (Auto) 1.5 % (0.0-8.0) Basophils (%) (Auto) 0.5 % (0.0-5.0) Neutrophils # (Auto) 5.3 K/uL (1.8-7.7) Lymphocytes # (Auto) 1.7 K/uL (1.0-4.8) Monocytes # (Auto) 0.8 K/uL (0.1-1.0) Eosinophils # (Auto) 0.12 K/uL (0.00-0.70) Basophils # (Auto) 0.04 K/uL (0.00-0.20) Absolute Immature Granulocyte (auto 0.02 K/uL (0-1) Nucleated Red Blood Cells 0.0 % (0.0-0.19) Sodium Level 140 mmol/L (136-145) Potassium Level 4.2 mmol/L (3.5-5.1) Chloride Level 104 mmol/L (101-111) Carbon Dioxide Level 28 mmol/L (21-32) Blood Urea Nitrogen 23 mg/dL (7-18) H Creatinine 1.0 mg/dL (0.5-1.3) Glomerular Filtration Rate Calc 81 mL/min (>90) Random Glucose 78 mg/dL (70-105) Total Calcium 9.5 mg/dL (8.5-10.1) Labs Reviewed?: Yes MDM MDM: Differential diagnosis: Puncture wound, cellulitis, Rationale: Tests considered and ordered secondary to shared decision making include: Previous outside records reviewed: Old ER visits. Risk of complication and/or morbidity or mortality of patient management: None Medications-Per medication reconciliation Need for hospitalization: Patient does not meet criteria for hospitalization. Patient is a 69-year-old male coming in complaining of foot discomfort. States he stepped in the nail with the nail went through his shoe. He is diabetic so is here for further evaluation laboratory workup within limits patient received his tetanus IM antibiotics he will be discharged with continued treatment of ongoing antibiotic treatment. ED Course Orders Procedure Category Date Status Time Cbc With Differential LAB 02/27/25 Complete 15:20 Basic Metabolic Panel LAB 02/27/25 Complete 15:20 Tetanus,Diphtheria PHA 02/27/25 Complete Tox [Adult] (Diphther 15:30 Ceftriaxone 1g Vial PHA 02/27/25 Complete (Rocephine 1g Inj) 15:30 Foot Limited 2vws Lt RAD 02/27/25 Taken 16:06 Current Medications Medications (Trade) Dose Ordered Sig/Candace Route PRN Reason Start Time Stop Time Status Last Admin Dose Admin Ceftriaxone Sodium (ROCEphine 1G INJ) 1 gm ONCE ONCE IM 02/27/25 15:30 02/27/25 15:31 DC Tetanus/ Diphtheria Toxoids Adsorbed (DiphthERIA-teTANUS TOXOID [ADULT]/ DECAVAC) 0.5 ml ONCE ONCE IM 02/27/25 15:30 02/27/25 15:31 DC Vital Signs Date Time Temp Pulse Resp B/P (MAP) Pulse Ox O2 Delivery O2 Flow Rate FiO2 02/27/25 15:07 97.5 70 16 107/65 96 Room Air 0 DX & DISP Disposition: Discharge Departure Impression: Primary Impression: Puncture wound of foot Condition: Stable Scripts Ciprofloxacin HCl (Cipro) 250 Mg Tablet 500 MG PO BID for 7 Days, #14 TAB Prov: JUSTYNA CHAVARRIA MD 02/27/25 Additional Instructions: FOLLOW-UP WITH PRIMARY CARE PROVIDER IN 1 TO 2 DAYS. TAKE MEDICATIONS DIRECTED HERE IN THE EMERGENCY ROOM. OKAY TO CONTINUE HOME MEDICATIONS UNLESS OTHERWISE DISCUSSED DURING YOUR VISIT IN THE EMERGENCY ROOM TODAY. RETURN TO Y OUR NEAREST EMERGENCY ROOM IF SYMPTOMS WORSEN OR IF THERE IS NO IMPROVEMENT. CALL 911 IF YOU NEED IMMEDIATE ASSISTANCE. TAKE TYLENOL TOFN-FAU-NONSRVM NEEDED AND IF NO CONTRAINDICATIONS ARE PRESENT. INCREASE ORAL HYDRATION. A WOUND CULTURE OR URINE CULTURE WAS ORDERED HERE IN THE EMERGENCY ROOM DEPARTMENT PLEASE FOLLOW-UP WITH PRIMARY CARE PROVIDER AND ADVISE THEM TO GET REPORTS FROM OUR FACILITY. IF YOU HAD ANY YENNY WRAP/SPLINTS THAT WERE APPLIED HERE, PLEASE DO NOT REMOVE THEM UNTIL YOU SEE YOUR PRIMARY CARE OR SPECIALTY. Referrals: Referrals: RAMON CROOKS MD (PCP) Time of Disposition: 16:06 JUSTYNA CHAVARRIA MD Feb 27, 2025 16:06
[2025-02-27] MEDS ORDERED: CIPR-279 PO (17:04)
[2025-02-27 18:22] VITALS: BP 106/62; PULSE 70; RESP 16; TEMP 98.3; O2SAT 98
--- NOTE | 2025-02-27 18:26 | NUR ---
LEFT FOOT PUNCTURE WOUND STEPPED ON NAIL IN HOUSE SHOES
--- NOTE | 2025-03-01 16:39 | HMCIMG ---
EXAM: CR right foot, 2 View. CLINICAL HISTORY: puncture COMPARISON: None provided. FINDINGS: BONES: No acute fracture or aggressive appearing osseous lesion. JOINTS: Mild degenerative changes SOFT TISSUES: Circular density interposed between the proximal aspect 1st and 2nd metatarsals. Cannot exclude foreign body. Mild soft tissue swelling IMPRESSION: 1. Circular density interposed between the proximal aspect 1st and 2nd metatarsals. Cannot exclude foreign body. 2. Mild soft tissue swelling 3. Mild degenerative changes /[place]
== END 2025-02-27 18:43 | disposition home or self-care (01) ==
LOC: EDH 15:05
DX: S91.332A Puncture wound without foreign body, left foot, initial encounter (principal); E11.9 Type 2 diabetes mellitus without complications; I10 Essential (primary) hypertension; Z79.84 Long term (current) use of oral hypoglycemic drugs; Z79.899 Other long term (current) drug therapy; Z90.49 Acquired absence of other specified parts of digestive tract; W45.0XXA Nail entering through skin, initial encounter; Y93.89 Activity, other specified; Y92.89 Other specified places as the place of occurrence of the external cause; Y99.8 Other external cause status
CPT/HCPCS: 99284; 80048; 85025; 36415; 90714; 73620; 96372; 90471; J0696